=== PATIENT | male | born 1985 | race Caucasian/White ===

== ENCOUNTER 2024-12-09 07:10 | Emergency (ER) | payer SELFPAY ==
[2024-12-09] MEDS: Ketorolac 30 MG/ML SDV IM ONE (07:46)
[2024-12-09] MEDS: Acetaminophen 500 MG Tab PO ONE (07:47)
[2024-12-09] MEDS: Lidocaine 5% 700 MG Patch TOP ONE (07:47)
== END 2024-12-09 07:55 | disposition home or self-care (01) ==
LOC: DL.ED 07:10
DX: M54.50 Low back pain, unspecified (principal)
CPT/HCPCS: 96372; 99283; A9270; J1885